=== PATIENT | female | born 1990 | race Caucasian/White ===

== ENCOUNTER 2017-01-20 16:15 | Emergency (ER) | payer OTHER ==
[2017-01-20 16:18] VITALS: BP 146/82; BMI 48.0
--- NOTE | 2017-01-20 16:26 | DR.EXTPAIN ---
HPI - Time seen Time seen: 16:20 - PCP Primary Care Physician: VENUS CANDELARIO - HPI Comment HPI Comment: SWELLING LT ANKLE. DIFFICULTY BEARING WEIGHT ON LEFT LOWER EXTREMITY. - Complaint/Symptoms Chief Complaint Doctor Comments: FELL AND INJURED LEFT ANKLE AT THE DAY CARE. Chief Complaint:: PT. C/O LEFT FOOT PAIN S/P FALL AT [facility]. PT. UNABLE TO BEAR WEIGHT TO FOOT. - Nurses notes reviewed Nurses Notes Review: Yes - Source History Provided: Patient - Mode of arrival Mode of Arrival: Wheelchair - Timing Onset of Chief Complaint: 01/20/17 - Context History of: None - Associated signs and symptoms Associated Signs and Symptoms: Pain, Swelling PMH - PMH Past Medical History: No Past Surgical History: No Surgical History: No History - Family History History of Family Medical Conditions: Yes Family Medical History: Hypertension - Social History Does patient currently use any type of tobacco product: No Have you used tobacco products in the last 12 months: No Type of Tobacco Use: None Does any household member use tobacco: No Alcohol Use: None Do you use any recreational Drugs:: No Lives With: Mom Lives Where: Home - infectious screening In the last 2 months have you had wt loss of >10#?: NO Have you had fever, night sweats or hemotysis?: No Have you traveled outside the country in the last 6 months?: No Isolation: Standard ROS - Review of Systems Constitutional: No Symptoms Reported Eyes: No Symptoms Reported ENTM: No Symptoms Reported Respiratoy: No Symptoms Reported Cardiovascular: No Symptoms Reported Gastrointestinal/Abdominal: No Symptoms Reported Genitourinary: No Symptoms Reported Neurological: No Symptoms Reported Musculoskeletal: Right, Foot Integumentary: No Symptoms Reported Hematologic/Lymphatic: No Symptoms Reported Endocrine: No Symptoms Reported All Other Systems: Reviewed and Negative PE - Vital Signs Vitals: Temperature 98.1 F Pulse Rate 71 Respiratory Rate 17 Blood Pressure 146/82 O2 Sat by Pulse Oximetry 99 - General Limitations: No Limitations General Appearance: Alert - Head Head Exam: Normal Inspection - Eyes Eye exam: Normal Appearance - ENT ENT Exam: Normal External Ear Exam - Neck Neck Exam: Normal Inspection - Chest Chest Inspection: Symmetric Chest Wall Rise - Respiratory Respiratory Exam: Normal Lung Sounds Bilat Respiratory Exam: Bilateral Clear to Auscultation - Cardiovascular Cardiovascular Exam: Regular Rate, Normal Rhythm, Normal Heart Sounds - Abdominal Exam Abdominal Exam: Normal Bowel Sounds, Soft. negative: Tenderness - Extremities Extremities Exam: Tenderness (TENDERNESS LT ANKLE WITH SWELLING LAT MALLEOLUS. PULSES INTACT. ), Joint Swelling (LT ANKLE.) - Lower Extremities Gait Exam: Observed & Limited by Pain - Back Back Exam: Normal Inspection - Neurological Neurological Exam: Alert, Oriented X3 - Psychiatric Psychiatric Exam: Normal Affect, Normal Mood - Skin Skin Exam: Normal Color MDM - Differential Diagnosis Differential Diagnosis: Contusion, Fracture, Sprain Course - Treatment Treatment: SEE ORDERS. ANKLE SPLINT APPLIED TO PATIENT IN ED. - Education/Counseling Education/Counseling: Patient, Education Educated On: Treatment, Diagnosis, Needs for Follow Up ROR - XRAY XRAY Interpreted by: Radiologist XRAY Findings: REPORT DISCUSS WITH PATIENT. - Diagnosis Discharge Problem: Ankle sprain Qualifiers: Encounter type: initial encounter Involved ligament of ankle: unspecified ligament Laterality: left Qualified Code(s): S93.402A - Sprain of unspecified ligament of left ankle, initial encounter - Discharge Plan Disposition: 01 HOME, SELF-CARE Condition: Stable Prescriptions: Ibuprofen [Motrin Tab 800 mg] 800 mg PO Q8H PRN #20 tab PRN Reason: Pain/Inflammation - Follow ups/Referrals Follow ups/Referrals: JUSTIN JONES [Primary Care Provider] - 2 days - Instructions Instructions: Ankle Sprain, [id number] Additional Instructions: RETURN TO ED IF WORSE.
--- NOTE | 2017-01-20 17:11 | RAD ---
HISTORY: Fall and left ankle pain and swelling Study: Three views left ankle Comparison: None Findings: No acute cortical disruption or dislocation can be identified. The ankle mortise remains well align ed. No significant soft tissue swelling or injury can be seen. The visualized portions of the talu s and calcaneus are unremarkable. IMPRESSION: 1. Negative exam. Reported By:
== END 2017-01-20 17:31 | disposition home or self-care (01) ==
LOC: ER 16:15
PROC: 2W3MX1Z Immobilization of Left Lower Extremity using Splint (ICD-10-PCS; principal; 2017-01-20)
DX: S93.402A Sprain of unspecified ligament of left ankle, initial encounter (principal); W19.XXXA Unspecified fall, initial encounter; Y92.89 Other specified places as the place of occurrence of the external cause
CPT/HCPCS: 73610; 99282; 99283

== ENCOUNTER → 2017-03-21 | Outpatient (CLI) | payer OTHER ==
--- NOTE | 2017-03-24 09:27 | MRI ---
MRI BRAIN AND ORBITS WITHOUT AND WITH CONTRAST CLINICAL HISTORY: 26-year-old female with papilledema and headaches. COMPARISON: None. TECHNIQUE: Multiplanar, multisequence MR images of the brain, with NFOV through the orbits, were obt ained prior to and following the uneventful intravenous administration of contrast. FINDINGS: There is no evidence of diffusion restriction. The craniocervical junction is normal. Normal signal c haracteristics and morphology are demonstrated within the cerebral cortex, subcortical white matter, corpus callosum, deep mosquera nuclei, brainstem and cerebellum. The major vascular channels opacify norm ally and the major vascular flow voids, to include the dural venous sinuses, are intact. The ventricu lar system is normal in size and morphology. The basilar cisterns are normal. There is no evidence of abnormal intracranial enhancement. The orbits and globes are within normal limits. Trace mucosal thickening in the floor of the right ma xillary sinus and in the posterior ethmoid air cells on the left. The remaining paranasal sinuses, ty mpanic cavities and mastoids are clear. Right ORBIT: No intraconal, extraconal or globe lesion identified. The globe is normal in appearance. Bony orbit is normal in appearance. There is no abnormality within the preseptal soft tissues. Optic nerve an d complex are normal in appearance without abnormal enhancement or enlargement. Extraocular muscles are normal in bulk and signal intensity. The lacrimal apparatus is normal in appearance. Orbital ap ex is normal. Left ORBIT: No intraconal, extraconal or globe lesion identified. The globe is normal in appearance. Bony orbit is normal in appearance. There is no abnormality within the preseptal soft tissues. Optic nerve an d complex are normal in appearance without abnormal enhancement or enlargement. Extraocular muscles are normal in bulk and signal intensity. The lacrimal apparatus is normal in appearance. Orbital ap ex is normal. IMPRESSION: 1. Normal MRI of the brain and orbits. 2. Trace mucosal thickening of the paranasal sinuses as described. Reported By:
--- NOTE | 2017-03-24 09:28 | MRI ---
MR VENOGRAPHY HEAD WITHOUT CONTRAST CLINICAL HISTORY: 26-year-old female with papilledema and headaches. COMPARISON: None. Technique: 2-D [id number] magnetic resonance angiographic images of the intracranial venous syste m were obtained and presented as maximum intensity projection images and rotating format. FINDINGS: Normal flow related enhancement is visualized within the superior sagittal sinus, inferior sagittal s inus, straight sinus, transverse and sigmoid sinuses, jugular bulbs, and internal jugular veins. Norm al flow related enhancement is also visualized within the cortical veins, internal cerebral veins, an d vein of Tip. The superior sagittal sinus predominately drains into a dominant right transverse si nus. The right sigmoid sinus and internal jugular vein are dominant. The deep system predominately dr ains into the right transverse sinus. IMPRESSION: No evidence of venous thrombosis. Reported By:
== END ==
LOC: RAD 14:05
PROVIDERS: ATTEND Ophthalmology
DX: G93.2 Benign intracranial hypertension (principal); H47.10 Unspecified papilledema
CPT/HCPCS: 70544; 70553